=== PATIENT | female | born 2000 | race Two or more races ===

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

== ENCOUNTER 2021-05-05 10:33 | Emergency (ER) | payer OTHER ==
[~2021-05-05] VITALS: Ht 154.9 cm; Wt 63.5 kg
--- NOTE | 2021-05-05 11:30 | NUR ---
Patient discharged to home in stable condition. Written and verbal after care instructions given. Patient verbalizes understanding of instructions. Stressed follow up or return to ER for worsening s/s.pt refuses to call lapd on this matter.
== END 2021-05-05 11:30 | disposition home or self-care (01) ==
LOC: ER 10:33
DX: S00.33XA Contusion of nose, initial encounter (principal); S60.811A Abrasion of right wrist, initial encounter; M25.531 Pain in right wrist; Y09 Assault by unspecified means; Y92.89 Other specified places as the place of occurrence of the external cause; Y99.8 Other external cause status
CPT/HCPCS: 70160; 73110; A4663

== ENCOUNTER 2022-10-20 20:55 | Emergency (ER) | payer OTHER ==
[~2022-10-20] VITALS: Ht 157.5 cm; Wt 55.8 kg
--- NOTE | 2022-10-20 22:57 | NUR ---
Patient placed in room 4A at this time.
[2022-10-20] MEDS ORDERED: KETOROLAC TROMETHAMINE 60 MG INJ IM ONE ×2 (23:15→23:39)
--- NOTE | 2022-10-20 23:32 | NUR ---
Patient sitting up in bed, informed of plan of care. Bedside EKG done for MD review. no s/s of any distress noted at this time.
[2022-10-20 23:33] LABS: HEMATOCRIT 39.7 % (31.2-41.9); MEAN CORPUSCULAR HEMOGLOBIN 31.7 uug (24.7-32.8); MEAN CORPUSCULAR VOLUME 94.6 fL (75.5-95.3); PLATELET COUNT (AUTO) 255 K/uL (179-408)
[2022-10-20 23:48] LABS: ALANINE AMINOTRANSFERASE 23 U/L (14-59); ALKALINE PHOSPHATASE 73 U/L (50-136); ASPARTATE AMINOTRANSFERASE 21 U/L (15-37); BILIRUBIN,DIRECT 0.4 mg/dL (0.0-0.2); BILIRUBIN,TOTAL 1.1 mg/dL (0.2-1.0); CARBON DIOXIDE 26 mmol/L (21-32); CHLORIDE 104 mmol/L (98-107); CREATININE 0.8 mg/dL (0.6-1.3); GLUCOSE 91 mg/dL (74-106); POTASSIUM 3.8 mmol/L (3.5-5.1); UREA NITROGEN, BLOOD 15 mg/dL (7-18)
--- NOTE | 2022-10-21 00:10 | NUR ---
Sitting up in bed, states pain is better, will continue to monitor.
--- NOTE | 2022-10-21 00:38 | NUR ---
MD spoke with patient, patient feels better.
[2022-10-21] MEDS ORDERED: IBUP800T54 PO (00:51)
--- NOTE | 2022-10-21 00:55 | NUR ---
Patient discharged to home in stable condition. Written and verbal after care instructions given. Patient verbalizes understanding of instructions. Stressed follow up or return to ER for worsening s/s.
[2022-10-21 00:57] VITALS: BP 120/73
== END 2022-10-21 00:58 | disposition home or self-care (01) ==
LOC: ER 20:55
DX: R07.9 Chest pain, unspecified (principal); C92.01 Acute myeloblastic leukemia, in remission; R00.1 Bradycardia, unspecified
CPT/HCPCS: 99285; 71045; 80076; 80048; 85025; 85379; 84484; 36415 ×2; 93005; 96372; 84702; J1885; A4663